=== PATIENT | male | born 1960 | race Caucasian/White ===

== ENCOUNTER → 2016-08-31 07:28 | Day surgery (SDC) | payer OTHER ==
--- NOTE | 2016-08-24 09:57 | HP ---
PREOPERATIVE HISTORY AND PHYSICAL: DATE OF ADMISSION/SURGERY: 08/31/16 DATE OF OFFICE VISIT/ENCOUNTER: 08/23/16 ATTENDING SURGEON: Dr. Jesica Martinez. PROCEDURE: Right long finger trigger finger release. CHIEF COMPLAINT: Right long finger triggering. HISTORY OF PRESENT ILLNESS: This is a 55-year-old male with a history of hepatitis C. He is complaining currently of triggering in the right long finger that has been present for well over a year. He was treated in the past by Dr. Sima Thomas with an injection and he did note improvement after the injection; however, the symptoms returned and he would like now to proceed with more definitive treatment. He reports that his fingers are quite painful and it locks regularly. The patient has chronic back pain for which he is treated in the pain clinic by Dr. Bar. PAST MEDICAL HISTORY: 1. History of hepatitis C. 2. Chronic low back pain. 3. Hypertension. 4. Hypercholesterolemia. PAST SURGICAL HISTORY: 1. Bilateral carpal tunnel releases. 2. Bilateral knee arthroscopies. 3. Left wrist surgery. 4. Left shoulder surgery. 5. Right thumb tendon repair. CURRENT MEDICATIONS: 1. Ibuprofen p.r.n. 2. Lisinopril 5 mg daily. 3. Oxycodone HCl 10 mg 1 to 2 tablets q.4 to 6 hours p.r.n. pain. 4. Simvastatin 10 mg q.h.s. ALLERGIES: PENICILLIN and FLEXERIL both of which cause hives. FAMILY MEDICAL HISTORY: Noncontributory. SOCIAL HISTORY: The patient is currently disabled from work because of his back. He is a builder by trade. He is a current smoker. He is in the process of quitting. He is down to 1 to 2 cigarettes per day, but has smoked for the past 40 years and has been up to a pack per day. He denies illicit drug use. He denies alcohol use. REVIEW OF SYSTEMS: General: Negative for fevers, chills, or night sweats. No known anesthesia problems. HEENT: Negative for headache, lightheadedness, or syncopal episodes. Integumentary: Negative for abrasions, lesions, or open wounds. Cardiothoracic: Positive for hypertension. Negative for chest pain, palpitations, or edema. Pulmonary: Negative for shortness of breath with exertion, chronic cough, or COPD. GI: Negative for nausea, vomiting, diarrhea , constipation, or GERD. : Negative for nocturia, urinary frequency, urgency , history of UTIs, or kidney problems. Musculoskeletal: Positive for chronic back pain. Positive for current complaint. Neurological: Negative for paresthesias, numbness, history of seizure, stroke, or epilepsy. Endocrine: Negative for diabetes or thyroid issues. Hematologic: Negative for easy bruising, anemia, excessive bleeding, or history of DVT. Infectious Disease: Positive for history of hepatitis C. Negative for history of MRSA or HIV. PHYSICAL EXAMINATION GENERAL: Well-developed, well-nourished, 55-year-old male in no acute distress. VITAL SIGNS: Height 5 feet 8 inches, weight 250 pounds, pulse rate 64, blood pressure 122/60. HEENT: Normocephalic, atraumatic. Pupils are equal, round, and reactive to light and accommodation. Extraocular movements are intact. NECK: Supple. No palpable lymph nodes. Throat is clear. PULMONARY: Lungs are clear to auscultation bilaterally. No wheezes, rales, or rhonchi. CARDIOTHORACIC: Regular rate and rhythm. S1 and S2. No murmurs, rubs, or gallops. No edema. ABDOMEN: Positive bowel sounds, soft, nontender. NEUROLOGICAL: Alert and oriented x3. Cranial nerves II through XII are intact. Sensation is intact to light touch. MUSCULOSKELETAL: On exam of the right hand, there is tenderness to palpation at the A1 santi of the right middle finger. He has locking when he flexes his finger. Skin is intact. Neurovascular function is intact. IMPRESSION: Right middle finger trigger finger. PLAN: The patient is scheduled to undergo a right long finger trigger finger release with Dr. Martinez on 08/31/16. He will return to the office 10 to 14 days postop for followup and suture removal. He has oxycodone HCl 10 mg at home as prescribed by Dr. Bar through the pain clinic and he will use this for postoperative pain management as needed. ALBA MAGDALENO [id number]/[facility] #: [id number] [facility] HOSPITALLeny
[~2016-08-31 07:28] MED LIST: Buffered Lidocaine 1% SYR 3ML* 3 ML/SYR SYRINGE INTRADERM ONE; Buffered Lidocaine 1% SYR 3ML* 3 ML/SYR SYRINGE ONE; Lidocaine 1% INJ* 10 MG/ML 30 ML SDV ONE; Midazolam* 1 MG/ML 2 ML VIAL (2 MG) ONE; fentaNYL* 50 MCG/ML 2 ML VIAL (100 MCG VIAL) ONE
[2016-08-31 09:03] VITALS: BP 122/76
--- NOTE | 2016-08-31 13:26 | OP ---
DATE OF OPERATION: 08/31/16 [facility] DATE OF : 58 SURGEON: Jesica Martinez MD [facility] [employer] PROFESSOR: ALBA Garcias ANESTHESIOLOGIST: Tyler Thao MD ANESTHESIA: Local MAC. PRE-OP DIAGNOSIS: Right long finger trigger finger. POST-OP DIAGNOSIS: Right long finger trigger finger. OPERATIVE PROCEDURE: Right long finger trigger release. INDICATIONS: Conrado is a 55-year-old male with painful locking of his right middle finger. He presents for trigger release. ESTIMATED BLOOD LOSS: Zero. TOURNIQUET TIME: 5 minutes. DESCRIPTION OF PROCEDURE: The patient was brought to the operating room, was given a sedation anesthetic, and a local infiltration of 10 cc of 1% plain lidocaine in the palm of his right hand. The skin of his right hand and forearm was prepped and draped in the usual sterile fashion. The hand and forearm were exsanguinated and the tourniquet elevated to 250 mmHg. A transverse incision was made centered over the A1 santi of the right middle finger. We dissected bluntly through the subcutaneous tissue. The digital neurovascular bundles were retracted by the surgical appliance fitter, Cara Vera. The A1 santi was incised longitudinally completely releasing the tendons, which were in good condition. The wound was irrigated and the skin edges reapproximated with 4-0 nylon suture. The wound was dressed with Xeroform, 4x4 , Webril, and an Alejo wrap. The patient tolerated the procedure well and was brought to the recovery room in good condition. [id number]/[facility] #: [id number] MTDD
== END | disposition home or self-care (01) ==
LOC: OREAST 07:28
PROVIDERS: ATTEND Orthopaedic Surgery
DX: M65.331 Trigger finger, right middle finger (principal); F17.210 Nicotine dependence, cigarettes, uncomplicated; I10 Essential (primary) hypertension; E78.00 Pure hypercholesterolemia, unspecified; M19.90 Unspecified osteoarthritis, unspecified site
CPT/HCPCS: J2250; J3010

== ENCOUNTER 2017-05-11 10:22 | Day surgery (SDC) | payer OTHER ==
[~2017-05-11 10:22] MED LIST changes: +Buffered Lidocaine 0.9% SYRIN* 5 ML/SYR SYRINGE INTRADERM ONE; -Buffered Lidocaine 1% SYR 3ML* 3 ML/SYR SYRINGE INTRADERM ONE; -Buffered Lidocaine 1% SYR 3ML* 3 ML/SYR SYRINGE ONE; +Dexamethasone IV* 4 MG/ML 1 ML (4 MG) IV SLOW PU ONE; +Famotidine IV* 10 MG/ML 2 ML (20 mg) IV ONE; -Lidocaine 1% INJ* 10 MG/ML 30 ML SDV ONE; -Midazolam* 1 MG/ML 2 ML VIAL (2 MG) ONE; -fentaNYL* 50 MCG/ML 2 ML VIAL (100 MCG VIAL) ONE
[2017-05-11] MEDS ORDERED: Buffered Lidocaine 0.9% SYRIN* 5 ML/SYR SYRINGE ONE (10:38)
[2017-05-11] MEDS ORDERED: Dexamethasone IV* 4 MG/ML 1 ML (4 MG) ONE (10:38)
[2017-05-11] MEDS ORDERED: Famotidine IV* 10 MG/ML 2 ML (20 mg) ONE (10:38)
[2017-05-11] MEDS ORDERED: Levalbuterol 1.25MG/0.5ML NEB ONE (11:43)
[2017-05-11] MEDS ORDERED: fentaNYL* 50 MCG/ML 2 ML VIAL (100 MCG VIAL) ONE ×3 (11:50→13:04)
[2017-05-11] MEDS ORDERED: Propofol* 10 MG/ML 20 ML BTL IV PUSH ONE ×2 (11:52→13:38)
[2017-05-11] MEDS ORDERED: Ondansetron INJ* 2 MG/ML VIAL ONE (11:52)
[2017-05-11] MEDS ORDERED: Levalbuterol 0.63MG/3ML NEB* UNIT OF USE INH SCH (12:00)
[2017-05-11] MEDS ORDERED: Lidocaine 2% PF * 5 ML VIAL ONE (13:38)
[2017-05-11 15:03] VITALS: BP 126/70
--- NOTE | 2017-05-12 01:04 | PRO ---
CC: Dr. Loretta Parra * DATE OF PROCEDURE: 05/11/17 - [facility] PROCEDURE PERFORMED: Colonoscopy with polypectomy using combination of hot snare, cold snare, and jumbo forceps biopsy. NARRATIVE: This is a 56-year-old male who presents for surveillance colonoscopy. Last colonoscopy was incomplete due to the patient's intolerance and desaturation during procedure. The patient was scheduled to have procedure done at the hospital with the assistance of anesthesia staff. Medications per anesthesia record. DESCRIPTION OF PROCEDURE: After the risks and benefits of the procedure were discussed in detail. The patient verbalized understanding and agreed to the procedure. Informed consent was obtained in the preoperative area. Time-out was performed in the operating room. The patient was placed in the left lateral decubitus position and colonoscopy was then performed. Digital rectal examination was remarkable for external anal skin tags as well as non- thrombosed grade 1 internal hemorrhoids. The patient also had an enlarged prostate. Next, I advanced a video adult colonoscope to the terminal ileum with ease. The terminal ileum was intubated for approximately 5 cm and was completely normal. The cecum, which was identified by the appendiceal orifice and ileocecal valve, was remarkable for multiple diminutive polyps and using a cold forceps these polyps were removed and completely retrieved. In the ascending colon, there was a polyp noted that was large, approximately 2 cm in size, and next, using hot snare, this was completely removed and retrieved. There was mild bleeding post polypectomy and a Hemoclip was then placed. In the transverse colon, there were multiple polyps noted, and using hot snare this was completely removed and retrieved. There was adequate hemostasis post polypectomy. In the rectosigmoid, again, there were multiple polyps noted, approximately 4 found; using a combination of cold snare and jumbo forceps this was completely removed and retrieved. In the descending colon, there was a semipedunculated polyp noted and using a hot snare this was completely removed and retrieved. Total of 12 polyps were noted on this colonoscopy. Bowel preparation overall was good after extensive irrigation and suctioning. The patient tolerated the procedure well, again with anesthesia assistance. There were no immediate complications. The patient was transferred to the PACU in stable condition. IMPRESSION: 1. Multiple colonic polyps. 2. Internal hemorrhoids. 3. Enlarged prostate. 4. Mild internal hemorrhoids. RECOMMENDATIONS: 1. Follow up pathology and repeat colonoscopy in 1 year regardless of pathology , given the number of polyps noted and likelihood of piecemeal resection. 2. Follow up with PCP regarding enlarged prostate. [id number]/[facility] #: [id number] DIANE
== END 2017-05-11 14:45 | disposition home or self-care (01) ==
LOC: OR 10:22
PROVIDERS: ATTEND Internal Medicine
DX: Z12.11 Encounter for screening for malignant neoplasm of colon (principal); K63.5 Polyp of colon; D12.2 Benign neoplasm of ascending colon; D12.0 Benign neoplasm of cecum; D12.4 Benign neoplasm of descending colon; D12.3 Benign neoplasm of transverse colon; K64.8 Other hemorrhoids; N40.0 Benign prostatic hyperplasia without lower urinary tract symptoms; I10 Essential (primary) hypertension; F17.210 Nicotine dependence, cigarettes, uncomplicated; B19.20 Unspecified viral hepatitis C without hepatic coma
CPT/HCPCS: 88305; A9270-GY; J1100; J2405; J2704; J3010